=== PATIENT | male | born 1955 | race Caucasian/White ===

== ENCOUNTER → 2017-04-12 | Outpatient (CLI) | payer BC ==
[2017-04-13 06:13] LABS: ALPHA-1-ANTITRYPSIN, SERUM 75 mg/dL (90-200)
== END | disposition home or self-care (01) ==
LOC: LAB 14:37
PROVIDERS: Internal Medicine Critical Care Medicine
DX: J44.9 Chronic obstructive pulmonary disease, unspecified (principal)